=== PATIENT | female | born 1995 | race Caucasian/White ===

== ENCOUNTER 2017-12-31 15:09 | Emergency (ER) | payer OTHER ==
--- NOTE | 2017-12-31 15:38 | ED Physician Documentation ---
Skin Rash - HISTORIAN Historian: patient, friend - [facility] Chief Complaint: Skin Rash Additional Information: EXPOSED TO IMPETIGO SLEPT W/ CHILD NOWE 2 INPETIGO LIKE LESIONS LT LOW AXILLA AND RT LAT THORAX Onset: days ago Timing: still present Duration: persistent since Location: L axillary Quality: itchy, painful, burning Where: family Context: Medication Exposure: none Context: Food Exposure: none Further Comments: yes (NEIGHBOR DCHILD W.IMPETIGO CLOSE CONTACT SLEPT W/CHILD LESIONS AFTERWARD) - ROS CONST: no problems CVS/RESP: none EYES/ENT: none GI/: none MS/SKIN/LYMPH: rash NEURO/PSYCH: none - PAST HX Past History: other (SEASONAL ALLERGIES) Surgeries/Procedures: Yes (BENIGN BREAST BIOPSY) Allergies/Adverse Reactions: Allergies Allergy/AdvReac Type Severity Reaction Status Date / Time No Known Allergies Allergy Verified 12/31/17 15:23 Home Medications: Ambulatory Orders Medication Instructions Recorded NK [NK] 12/31/17 - SOCIAL HX Smoking History: less than 1 pack/day Alcohol Use: rarely Drug Use: none - FAMILY HX Family History: none - REVIEWED ASSESSMENTS Nursing Assessment Reviewed: Yes Vitals Reviewed: Yes Skin Rash Physical Exam - EXAM General Appearance: mild distress Skin: warm,dry, other (TWO LESIONS COMPATIBLE W/ IMPETIGO). No: cyanotic, diaphoretic Symptoms: tenderness (SLIGHT) Extremities: non-tender, nml ROM EENT: eyes nml inspection Neck: trachea midline Respiratory: no resp distress, breath sounds normal Abdomen: non-tender Neuro/Psych: oriented x3, motor nml, sensation nml, mood/affect nml Discharge Clincal Impression: IMPETIGO Referrals: Primary Doctor,No [Primary Care Provider] - 2 Days Condition: Good Disposition: 01 HOME, SELF-CARE Decision to Admit: NO Decision Time: 15:46
[2017-12-31 15:39] VITALS: BP 147/95
== END 2017-12-31 15:42 | disposition home or self-care (01) ==
LOC: ED 15:09
DX: L01.00 Impetigo, unspecified (principal)
CPT/HCPCS: 99282